=== PATIENT | male | born 1955 | race Two or more races ===

== ENCOUNTER 2017-09-26 19:10 | Inpatient (IN) | payer OTHER ==
[~2017-09-26] VITALS: Ht 170.2 cm; Wt 103.1 kg
[2017-09-26] MEDS ORDERED: ASPIRIN 325 MG TABLET PO STA (19:25)
[2017-09-26] MEDS ORDERED: ASPIRIN 81 MG TABLET CHEW ONE (19:31)
[2017-09-26] MEDS ORDERED: ONDANSETRON ODT 4 MG ONE (19:33)
[2017-09-26] MEDS ORDERED: MORPHINE SULFATE 4 MG/ML, 1ML ONE (19:34)
[2017-09-26 19:38] LABS: MEAN CORPUSCULAR HEMOGLOBIN 28.4 pg (27.5-34.5); MEAN CORPUSCULAR HGB CONC 33.8 g/dL (33.2-36.2); MEAN CORPUSCULAR VOLUME 84.1 fL (81-97); MEAN PLATELET VOLUME 8.6 fL (7.4-10.4); PLATELET COUNT 283 x10^3/uL (130-400); RED BLOOD COUNT 6.45 x10^6/uL (4.38-5.82); RED CELL DISTRIBUTION WIDTH 14.7 % (9.4-14.8)
[2017-09-26] MEDS ORDERED: NITROGLYCERIN 5 MG/ML, 10ML ONE (19:48)
[2017-09-26] MEDS ORDERED: VERAPAMIL 2.5 MG/ML, 2ML ONE (19:48)
[2017-09-26] MEDS ORDERED: TICAGRELOR 90 MG TABLET ONE (19:48)
[2017-09-26] MEDS ORDERED: FENTANYL PF 100 MCG/2ML ONE (19:48)
[2017-09-26] MEDS ORDERED: BIVALIRUDIN 250 MG ONE ×2 (19:48→20:56)
[2017-09-26] MEDS ORDERED: MIDAZOLAM 1 MG/ML, 5ML ONE (19:48)
[2017-09-26] MEDS ORDERED: HEPARIN 1,000 UNITS/ML, 10ML ONE (19:49)
[2017-09-26] MEDS ORDERED: LIDOCAINE/PF 1%, 30ML ONE (19:49)
[2017-09-26 19:55] LABS: BASOPHILS # (AUTO) 0.05 x10^3/uL (0-0.1); BASOPHILS % (AUTO) 0 % (0-1); EOSINOPHILS % (AUTO) 0 % (1-7); LYMPHOCYTES # (AUTO) 0.67 x10^3/uL (1-3.4); LYMPHOCYTES % (AUTO) 4 % (22-44); MD SCAN; MONOCYTES # (AUTO) 0.72 x10^3/uL (0.2-0.8); MONOCYTES % (AUTO) 4 % (2-9); NEUTROPHILS # (AUTO) 16.76 x10^3/uL (1.8-6.8); NEUTROPHILS % (AUTO) 92 % (42-75)
[2017-09-26 20:00] LABS: PROTHROMBIN TIME 10.4 Seconds (9.6-11.5)
[2017-09-26] MEDS ORDERED: ONDANSETRON ODT 4 MG PO ONE ×2 (20:00→22:00)
[2017-09-26] MEDS ORDERED: MORPHINE SULFATE 4 MG/ML, 1ML IVPush PRN (20:00)
[2017-09-26] MEDS ORDERED: NITROGLYCERIN SINGLE TAB 0.4 MG SL PRN (20:00)
[2017-09-26] MEDS ORDERED: SODIUM CHLORIDE FLUSH 10ML SYR IVF PRN (20:30)
[2017-09-26 20:47] LABS: HEMOGLOBIN A1C 6.1 % (4.2-6.3)
[2017-09-26] MEDS ORDERED: EPTIFIBATIDE 100 ML IV ONE (21:25)
[2017-09-26] MEDS ORDERED: EPTIFIBATIDE 20 MG/10 ML ONE ×2 (21:25→21:26)
[2017-09-26 22:20] VITALS: BP 118/72
[2017-09-26 23:07] LABS: TROPONIN I > 200.000 ng/mL (0.000-0.045)
[2017-09-26] MEDS: PROMETHAZINE 25 MG/ML, 1ML IM PRN (23:28)
[2017-09-26] MEDS ORDERED: FUROSEMIDE 20 MG/2 ML IVPush ONE (23:30)
[2017-09-26] MEDS ORDERED: DOCUSATE 100 MG CAPSULE PO PRN (23:30)
[2017-09-26] MEDS ORDERED: OXYcodone IR 5MG TABLET PO PRN (23:30)
[2017-09-26] MEDS ORDERED: ACETAMINOPHEN 325 MG TABLET PO PRN ×2 (23:30→23:45)
[2017-09-26] MEDS ORDERED: BISACODYL 10 MG SUPP PR PRN ×2 (23:30→23:45)
[2017-09-26] MEDS ORDERED: POLYETHYLENE GLYCOL 17 GM PACKET PO PRN (23:30)
[2017-09-26] MEDS ORDERED: morphine SULFATE 10 MG/ML, 1ML IVPush PRN (23:30)
[2017-09-26] MEDS ORDERED: ONDANSETRON 2MG/ML, 2ML IVPush PRN (23:30)
[2017-09-26] MEDS ORDERED: hydrALAzine 20 MG/ML, 1ML IVPush PRN (23:30)
[2017-09-26 23:45] LABS: HEMOGLOBIN A1C 6.2 % (4.2-6.3)
[2017-09-26] MEDS ORDERED: BISACODYL 5 MG EC TABLET PO PRN (23:45)
[2017-09-26] MEDS ORDERED: ONDANSETRON 2MG/ML, 2ML IV PRN (23:45)
[2017-09-26] MEDS ORDERED: ZOLPIDEM 5MG TABLET PO PRN (23:45)
[2017-09-26 23:48] LABS: FREE T4 (FREE THYROXINE) 1.16 ng/dL (0.76-1.46); THYROID STIMULATING HORMONE 1.67 mIU/L (0.358-3.740)
[2017-09-27] MEDS: SODIUM CHLORIDE 0.9% 500 ML IV SCH ×2 (00:18→05:27)
[2017-09-27 02:58] LABS: MICROSCOPIC AUTO
[2017-09-27 03:08] LABS: CULTURE INDICATED? NO
[2017-09-27] MEDS: ONDANSETRON ODT 4 MG PO PRN ×2 (03:50→08:21)
[2017-09-27] MEDS: PROMETHAZINE 25 MG/ML, 1ML IM PRN ×2 (03:50→07:34)
[2017-09-27 04:00] VITALS: BP 154/96
[2017-09-27] MEDS ORDERED: EPTIFIBATIDE 100 ML IV SCH (04:00)
[2017-09-27 04:40] LABS: MEAN CORPUSCULAR HEMOGLOBIN 28.2 pg (27.5-34.5); MEAN CORPUSCULAR HGB CONC 33.4 g/dL (33.2-36.2); MEAN CORPUSCULAR VOLUME 84.3 fL (81-97); MEAN PLATELET VOLUME 8.8 fL (7.4-10.4); PLATELET COUNT 276 x10^3/uL (130-400); RED BLOOD COUNT 6.12 x10^6/uL (4.38-5.82); RED CELL DISTRIBUTION WIDTH 14.8 % (9.4-14.8)
[2017-09-27 04:54] LABS: ALBUMIN 3.3 g/dL (3.4-5.0); ANION GAP 11 mmol/L (5-15); BASOPHILS # (AUTO) 0.03 x10^3/uL (0-0.1); BASOPHILS % (AUTO) 0 % (0-1); CALCIUM 8.2 mg/dL (8.5-10.1); CHLORIDE 97 mmol/L (98-107); EOSINOPHILS % (AUTO) 0 % (1-7); LYMPHOCYTES # (AUTO) 0.55 x10^3/uL (1-3.4); LYMPHOCYTES % (AUTO) 3 % (22-44); MD SCAN; MONOCYTES # (AUTO) 1.56 x10^3/uL (0.2-0.8); MONOCYTES % (AUTO) 8 % (2-9); NEUTROPHILS # (AUTO) 18.59 x10^3/uL (1.8-6.8); NEUTROPHILS % (AUTO) 90 % (42-75)
[2017-09-27 05:14] LABS: ALANINE AMINOTRANSFERASE 222 U/L (12-78); ALKALINE PHOSPHATASE 55 U/L (45-117); BILIRUBIN,TOTAL 1.1 mg/dL (0.2-1.0); CHOL/HDL RATIO 6.8; CHOLESTEROL, TOTAL 297 mg/dL (140-239); CREATININE 1.11 mg/dL (0.7-1.3); HDL CHOL % 15 % (26-37); HDL CHOLESTEROL (DIRECT) 44 mg/dL (40-60); LDL CHOLESTEROL,CALCULATED 226 mg/dL (54-169); LDL/HDL RATIO 5.1 (0.5-3.0); TOTAL PROTEIN 7.7 g/dL (6.4-8.2); TRIGLYCERIDES 135 mg/dL (50-200); VLDL CHOLESTEROL 27 mg/dL (0-25)
[2017-09-27 05:15] LABS: TROPONIN I > 200.000 ng/mL (0.000-0.045)
[2017-09-27] MEDS: ASPIRIN 81 MG TABLET EC PO SCH ×2 (05:28→05:47)
[2017-09-27] MEDS ORDERED: METOPROLOL TARTRATE 25 MG TABLET PO SCH (06:00)
[2017-09-27] MEDS ORDERED: PANTOPRAZOLE 80 MG in SODIUM CHLORIDE 0.9% 50 ML IV ONE (06:00)
[2017-09-27] MEDS ORDERED: PANTOPRAZOLE 80 MG in SODIUM CHLORIDE 0.9% 100 ML IV SCH (06:00)
[2017-09-27] MEDS ORDERED: ASPIRIN 81 MG TABLET EC PO SCH (06:00)
[2017-09-27] MEDS ORDERED: TICAGRELOR 90 MG TABLET PO SCH (06:00)
[2017-09-27] MEDS ORDERED: CARVEDILOL 3.125 MG TABLET PO SCH (06:00)
[2017-09-27] MEDS: TICAGRELOR 90 MG TABLET PO SCH ×2 (08:07→21:48)
[2017-09-27] MEDS: PANTOPRAZOLE 40 MG IV IVPush SCH ×2 (08:07→19:45)
[2017-09-27] MEDS ORDERED: LISINOPRIL 5 MG TABLET PO SCH ×2 (09:00→21:00)
[2017-09-27] MEDS ORDERED: LOSARTAN 25MG TABLET PO SCH (09:00)
[2017-09-27] MEDS ORDERED: GRANISETRON IV ONE (09:00)
[2017-09-27] MEDS ORDERED: SODIUM CHLORIDE 0.9% IV ONE (09:00)
[2017-09-27] MEDS: ENOXAPARIN 40 MG/0.4 ML SQ SCH (09:10)
[2017-09-27] MEDS: PROCHLORPERAZINE 5 MG/ML, 2ML IM PRN ×2 (12:37→17:43)
[2017-09-27] MEDS: METOPROLOL TARTRATE 25 MG TABLET PO SCH (17:43)
[2017-09-27] MEDS ORDERED: ATORVASTATIN 20 MG TABLET PO SCH (21:00)
[2017-09-27] MEDS: PROCHLORPERAZINE 5 MG/ML, 2ML IVPush PRN (21:47)
[2017-09-28] MEDS: PROCHLORPERAZINE 5 MG/ML, 2ML IVPush PRN ×3 (02:22→12:26)
[2017-09-28 04:00] VITALS: BP 114/78
[2017-09-28 04:51] LABS: ALANINE AMINOTRANSFERASE 133 U/L (12-78); ANION GAP 8 mmol/L (5-15); CALCIUM 8.2 mg/dL (8.5-10.1); CHLORIDE 101 mmol/L (98-107); CREATININE 1.13 mg/dL (0.7-1.3)
[2017-09-28 04:53] LABS: ALKALINE PHOSPHATASE 42 U/L (45-117); BILIRUBIN,TOTAL 1.8 mg/dL (0.2-1.0); TOTAL PROTEIN 7.1 g/dL (6.4-8.2)
[2017-09-28 05:25] LABS: MEAN CORPUSCULAR HEMOGLOBIN 28.4 pg (27.5-34.5); MEAN CORPUSCULAR HGB CONC 33.8 g/dL (33.2-36.2); PLATELET COUNT 228 x10^3/uL (130-400); RED BLOOD COUNT 5.13 x10^6/uL (4.38-5.82); RED CELL DISTRIBUTION WIDTH 14.9 % (9.4-14.8)
[2017-09-28] MEDS: ASPIRIN 81 MG TABLET EC PO SCH (05:30)
[2017-09-28] MEDS: METOPROLOL TARTRATE 25 MG TABLET PO SCH ×2 (05:30→18:00)
[2017-09-28 05:58] LABS: BASOPHILS # (AUTO) 0.01 x10^3/uL (0-0.1); BASOPHILS % (AUTO) 0 % (0-1); EOSINOPHILS # (AUTO) 0.01 x10^3/uL (0-0.4); EOSINOPHILS % (AUTO) 0 % (1-7); LYMPHOCYTES # (AUTO) 0.52 x10^3/uL (1-3.4); LYMPHOCYTES % (AUTO) 2 % (22-44); MD SCAN; MONOCYTES # (AUTO) 2.05 x10^3/uL (0.2-0.8); MONOCYTES % (AUTO) 9 % (2-9); NEUTROPHILS % (AUTO) 88 % (42-75)
[2017-09-28] MEDS: PANTOPRAZOLE 40 MG IV IVPush SCH ×2 (09:17→21:20)
[2017-09-28] MEDS: TICAGRELOR 90 MG TABLET PO SCH ×2 (09:18→21:20)
[2017-09-28] MEDS: ENOXAPARIN 40 MG/0.4 ML SQ SCH (09:18)
[2017-09-28 10:17] LABS: RAPID INFLUENZA A Negative (Negative); RAPID INFLUENZA B Negative (Negative)
[2017-09-28] MEDS: CEFTRIAXONE PMX 1GM/50ML 50 ML IV SCH (10:50)
[2017-09-28] MEDS: DOXYCYCLINE 100 MG in DEXTROSE 5% 250 ML IV SCH ×2 (11:38→21:58)
[2017-09-28] MEDS ORDERED: LISINOPRIL 5 MG TABLET PO SCH (21:00)
[2017-09-28] MEDS: ATORVASTATIN 40 MG TABLET PO SCH (21:21)
[2017-09-29 04:37] LABS: MEAN CORPUSCULAR HEMOGLOBIN 28.2 pg (27.5-34.5); MEAN CORPUSCULAR HGB CONC 33.5 g/dL (33.2-36.2); MEAN CORPUSCULAR VOLUME 84.1 fL (81-97); MEAN PLATELET VOLUME 8.6 fL (7.4-10.4); PLATELET COUNT 196 x10^3/uL (130-400); RED BLOOD COUNT 4.56 x10^6/uL (4.38-5.82); RED CELL DISTRIBUTION WIDTH 14.8 % (9.4-14.8)
[2017-09-29 04:49] LABS: ALANINE AMINOTRANSFERASE 84 U/L (12-78); ALBUMIN 2.7 g/dL (3.4-5.0); ANION GAP 8 mmol/L (5-15); CALCIUM 8.2 mg/dL (8.5-10.1); CHLORIDE 93 mmol/L (98-107); CREATININE 1.07 mg/dL (0.7-1.3)
[2017-09-29 04:52] LABS: ALKALINE PHOSPHATASE 44 U/L (45-117); BILIRUBIN,TOTAL 2.4 mg/dL (0.2-1.0); TOTAL PROTEIN 6.8 g/dL (6.4-8.2)
[2017-09-29 05:00] VITALS: BP 99/76
[2017-09-29 05:37] LABS: BASOPHILS # (AUTO) 0.04 x10^3/uL (0-0.1); BASOPHILS % (AUTO) 0 % (0-1); EOSINOPHILS # (AUTO) 0.01 x10^3/uL (0-0.4); EOSINOPHILS % (AUTO) 0 % (1-7); LYMPHOCYTES # (AUTO) 0.56 x10^3/uL (1-3.4); LYMPHOCYTES % (AUTO) 3 % (22-44); MD SCAN; MONOCYTES # (AUTO) 1.51 x10^3/uL (0.2-0.8); MONOCYTES % (AUTO) 7 % (2-9); NEUTROPHILS # (AUTO) 19.02 x10^3/uL (1.8-6.8); NEUTROPHILS % (AUTO) 90 % (42-75)
[2017-09-29] MEDS: ASPIRIN 81 MG TABLET EC PO SCH (06:18)
[2017-09-29] MEDS: METOPROLOL TARTRATE 25 MG TABLET PO SCH (06:18)
[2017-09-29] MEDS: PANTOPRAZOLE 40 MG IV IVPush SCH ×2 (07:41→20:03)
[2017-09-29] MEDS: CEFTRIAXONE PMX 1GM/50ML 50 ML IV SCH (09:00)
[2017-09-29] MEDS: TICAGRELOR 90 MG TABLET PO SCH ×2 (09:01→20:01)
[2017-09-29] MEDS: ENOXAPARIN 40 MG/0.4 ML SQ SCH (09:01)
[2017-09-29] MEDS: LISINOPRIL 5 MG TABLET PO SCH (09:08)
[2017-09-29] MEDS: DOXYCYCLINE 100 MG in DEXTROSE 5% 250 ML IV SCH ×2 (09:09→21:30)
[2017-09-29] MEDS ORDERED: chlorPROMAZINE 25 MG/ML, 2ML IM ONE (09:30)
[2017-09-29] MEDS ORDERED: POTASSIUM CHLORIDE 20 MEQ TAB.ER.PRT PO ONE (11:00)
[2017-09-29] MEDS: FUROSEMIDE 20 MG/2 ML IV SCH ×2 (13:03→17:56)
[2017-09-29 13:18] VITALS: BP 116/72
[2017-09-29] MEDS: CARVEDILOL 6.25 MG TABLET PO SCH (17:56)
[2017-09-29] MEDS ORDERED: CARVEDILOL 3.125 MG TABLET PO SCH (18:00)
[2017-09-29 19:24] VITALS: BP 81/46
[2017-09-29 19:31] VITALS: BP 97/61
[2017-09-29] MEDS: ATORVASTATIN 40 MG TABLET PO SCH (20:01)
[2017-09-29 22:06] VITALS: BP 98/64
[2017-09-30] VITALS (10 sets, daily range): BP systolic 85–101; BP diastolic 57–68
[2017-09-30 05:24] LABS: MEAN CORPUSCULAR HGB CONC 34.6 g/dL (33.2-36.2); MEAN CORPUSCULAR VOLUME 83.8 fL (81-97); PLATELET COUNT 205 x10^3/uL (130-400); RED BLOOD COUNT 4.03 x10^6/uL (4.38-5.82); RED CELL DISTRIBUTION WIDTH 14.7 % (9.4-14.8)
[2017-09-30 05:29] LABS: ALBUMIN 2.3 g/dL (3.4-5.0); ANION GAP 11 mmol/L (5-15); CALCIUM 7.9 mg/dL (8.5-10.1); CHLORIDE 96 mmol/L (98-107)
[2017-09-30 05:32] LABS: ALANINE AMINOTRANSFERASE 53 U/L (12-78); ALKALINE PHOSPHATASE 51 U/L (45-117); BILIRUBIN,TOTAL 1.9 mg/dL (0.2-1.0); CREATININE 1.11 mg/dL (0.7-1.3); TOTAL PROTEIN 6.4 g/dL (6.4-8.2)
[2017-09-30 05:51] LABS: BASOPHILS # (AUTO) 0.03 x10^3/uL (0-0.1); BASOPHILS % (AUTO) 0 % (0-1); EOSINOPHILS # (AUTO) 0.06 x10^3/uL (0-0.4); EOSINOPHILS % (AUTO) 0 % (1-7); LYMPHOCYTES # (AUTO) 0.52 x10^3/uL (1-3.4); LYMPHOCYTES % (AUTO) 3 % (22-44); MD SCAN; MONOCYTES # (AUTO) 1.35 x10^3/uL (0.2-0.8); MONOCYTES % (AUTO) 9 % (2-9); NEUTROPHILS # (AUTO) 13.24 x10^3/uL (1.8-6.8); NEUTROPHILS % (AUTO) 87 % (42-75)
[2017-09-30] MEDS: ASPIRIN 81 MG TABLET EC PO SCH (06:16)
[2017-09-30] MEDS: LISINOPRIL 5 MG TABLET PO SCH (08:22)
[2017-09-30] MEDS: ENOXAPARIN 40 MG/0.4 ML SQ SCH (08:22)
[2017-09-30] MEDS: PANTOPRAZOLE 40 MG IV IVPush SCH (08:22)
[2017-09-30] MEDS: CEFTRIAXONE PMX 1GM/50ML 50 ML IV SCH (08:22)
[2017-09-30] MEDS: TICAGRELOR 90 MG TABLET PO SCH ×2 (08:22→19:49)
[2017-09-30] MEDS: CARVEDILOL 6.25 MG TABLET PO SCH ×2 (08:22→18:35)
[2017-09-30] MEDS: DOXYCYCLINE 100 MG in DEXTROSE 5% 250 ML IV SCH ×2 (10:07→21:57)
[2017-09-30] MEDS: FUROSEMIDE 20 MG TABLET PO SCH (11:11)
[2017-09-30] MEDS: PANTOPROZOLE 40MG TABLET PO SCH (18:40)
[2017-09-30] MEDS: ATORVASTATIN 40 MG TABLET PO SCH (19:49)
[2017-10-01 01:09] VITALS: BP 113/71
[2017-10-01 05:39] VITALS: BP 98/67
[2017-10-01] MEDS: ASPIRIN 81 MG TABLET EC PO SCH (05:40)
[2017-10-01] MEDS: CARVEDILOL 6.25 MG TABLET PO SCH (05:40)
[2017-10-01 07:57] VITALS: BP 94/68
[2017-10-01] MEDS: LISINOPRIL 5 MG TABLET PO SCH (08:41)
[2017-10-01] MEDS: FUROSEMIDE 20 MG TABLET PO SCH ×2 (08:41→10:29)
[2017-10-01] MEDS: PANTOPROZOLE 40MG TABLET PO SCH (08:42)
[2017-10-01] MEDS: ENOXAPARIN 40 MG/0.4 ML SQ SCH (08:42)
[2017-10-01] MEDS: TICAGRELOR 90 MG TABLET PO SCH (08:42)
[2017-10-01 09:53] VITALS: BP_SYST 89; BP_SYST 92; BP_DIAS 60; BP_DIAS 65
[2017-10-01] MEDS ORDERED: ATOR40TA78 PO (13:43)
[2017-10-01] MEDS ORDERED: CARV3.1212 PO (13:43)
[2017-10-01] MEDS ORDERED: TICA90TA PO (13:43)
[2017-10-01] MEDS ORDERED: LISI5TAB7 PO (13:43)
[2017-10-01] MEDS ORDERED: ASPI-621 PO (13:43)
[2017-10-01 14:29] VITALS: BP 93/67
[2017-10-01] MEDS ORDERED: CARVEDILOL 3.125 MG TABLET PO SCH (18:00)
== END 2017-10-01 15:54 | disposition home or self-care (01) | DRG 246 ==
LOC: ED 20:21 → EDIP 20:30 → CCU 21:43 → 5SO 09-29 10:50 → DCLOUNGE 10-01 15:37
PROVIDERS: ADMIT Internal Medicine; ATTEND Internal Medicine
PROC: 027035Z Dilation of Coronary Artery, One Artery with Two Drug-eluting Intraluminal Devices, Percutaneous Approach (ICD-10-PCS; principal; 2017-09-26)
PROC: 02703ZZ Dilation of Coronary Artery, One Artery, Percutaneous Approach (ICD-10-PCS; 2017-09-26)
PROC: 4A023N7 Measurement of Cardiac Sampling and Pressure, Left Heart, Percutaneous Approach (ICD-10-PCS; 2017-09-26)
PROC: B2111ZZ Fluoroscopy of Multiple Coronary Arteries using Low Osmolar Contrast (ICD-10-PCS; 2017-09-26)
DX: I21.09 ST elevation (STEMI) myocardial infarction involving other coronary artery of anterior wall (principal); J18.9 Pneumonia, unspecified organism; K72.00 Acute and subacute hepatic failure without coma; I95.9 Hypotension, unspecified; E87.1 Hypo-osmolality and hyponatremia; I31.3 Pericardial effusion (noninflammatory); I08.3 Combined rheumatic disorders of mitral, aortic and tricuspid valves; B17.9 Acute viral hepatitis, unspecified; E78.5 Hyperlipidemia, unspecified; I10 Essential (primary) hypertension; I25.10 Atherosclerotic heart disease of native coronary artery without angina pectoris; G47.9 Sleep disorder, unspecified; I25.5 Ischemic cardiomyopathy; S30.1XXA Contusion of abdominal wall, initial encounter; Z87.891 Personal history of nicotine dependence; Z79.82 Long term (current) use of aspirin; Z79.899 Other long term (current) drug therapy; Y92.89 Other specified places as the place of occurrence of the external cause
CPT/HCPCS: 36415; 71045; 71046; 74018; 80047; 80053; 80061; 81001; 83036; 83735; 83880; 84439; 84443; 84484; 85025; 85610; 85730; 86677; 87040; 87081; 87400; 93005; 93306; 93458; 96374; 99156; 99157; C1760; C1769; C1894; J0583; J0696; J1644; J1650; J2250; J2550; J3010; J3490; J7060; Q0162; C1725; C1757; C1874; C1887; C9113; J0780; J1327; J1626; J1940; J3230; J7040; Q9967

== ENCOUNTER 2017-10-08 13:31 | Inpatient (IN) | payer OTHER ==
[~2017-10-08] VITALS: Ht 170.2 cm; Wt 98.1 kg
[~2017-10-08 13:31] MED LIST: ASPI-621 PO; ATOR40TA78 PO; CARV3.1212 PO; LISI5TAB7 PO; TICA90TA PO
[2017-10-08] MEDS ORDERED: ASPIRIN 81 MG TABLET CHEW PO ONE (14:00)
[2017-10-08] MEDS ORDERED: SODIUM CHLORIDE FLUSH 10ML SYR IVF ONE (14:00)
[2017-10-08 14:09] LABS: INTERNATIONAL NORMALIZED RATIO 1.05 (0.93-1.1); PROTHROMBIN TIME 10.9 Seconds (9.6-11.5)
[2017-10-08 14:10] LABS: MEAN CORPUSCULAR HEMOGLOBIN 28.9 pg (27.5-34.5); MEAN CORPUSCULAR HGB CONC 33.7 g/dL (33.2-36.2); MEAN CORPUSCULAR VOLUME 85.9 fL (81-97); MEAN PLATELET VOLUME 7.5 fL (7.4-10.4); PLATELET COUNT 539 x10^3/uL (130-400); RED BLOOD COUNT 4.42 x10^6/uL (4.38-5.82); RED CELL DISTRIBUTION WIDTH 15.6 % (9.4-14.8)
[2017-10-08 14:11] LABS: MD YES
[2017-10-08 14:12] LABS: ALANINE AMINOTRANSFERASE 150 U/L (12-78); ALBUMIN 2.8 g/dL (3.4-5.0); ANION GAP 8 mmol/L (5-15); CALCIUM 8.3 mg/dL (8.5-10.1); CHLORIDE 105 mmol/L (98-107); CREATININE 1.06 mg/dL (0.7-1.3)
[2017-10-08 14:16] LABS: ALKALINE PHOSPHATASE 99 U/L (45-117); BILIRUBIN,TOTAL 1.1 mg/dL (0.2-1.0); TOTAL PROTEIN 7.8 g/dL (6.4-8.2)
[2017-10-08 14:45] LABS: BAND#(MANUAL) 0.16 x10^3/uL; BANDS%(MANUAL) 1 % (0-7); EOS#(MANUAL) 0.33 x10^3/uL (0.0-0.4); EOS% (MANUAL) 2 % (1-7); LYMPH#(MANUAL) 0.98 x10^3/uL (1-3.4); LYMPHS% (MANUAL) 6 % (22-44); MONOS#(MANUAL) 0.98 x10^3/uL (0.3-2.7); MONOS% (MANUAL) 6 % (2-9); SEG#(MANUAL) 13.86 x10^3/uL (1.8-6.8); SEGS% (MANUAL) 85 % (42-75)
[2017-10-08 14:47] LABS: <PLATELET ESTIMATE> INCREASED; <PLT MORPHOLOGY> NORMAL PLT MORPH; POLYCHROMASIA 1+
[2017-10-08] MEDS ORDERED: SODIUM CHLORIDE FLUSH 10ML SYR IVF PRN (15:00)
[2017-10-08] MEDS ORDERED: ONDANSETRON 2MG/ML, 2ML IVPush PRN (15:30)
[2017-10-08] MEDS ORDERED: ACETAMINOPHEN 325 MG TABLET PO PRN (15:30)
[2017-10-08] MEDS ORDERED: FUROSEMIDE 20 MG/2 ML IV ONE (16:00)
[2017-10-08 16:28] VITALS: BP 109/71
[2017-10-08 16:36] VITALS: BP_SYST 111; BP_SYST 98; BP_DIAS 64; BP_DIAS 73; BP_DIAS 76
[2017-10-08] MEDS: CARVEDILOL 3.125 MG TABLET PO SCH (17:00)
[2017-10-08 17:41] LABS: HEMOGLOBIN A1C 6.1 % (4.2-6.3)
[2017-10-08 18:59] VITALS: BP 90/54
[2017-10-08 19:00] VITALS: BP 95/61
[2017-10-08 19:01] VITALS: BP 100/68
[2017-10-08] MEDS: HEPARIN 5,000 UNITS/ML, 1ML SQ SCH (20:19)
[2017-10-08] MEDS: ATORVASTATIN 40 MG TABLET PO SCH (20:19)
[2017-10-08] MEDS: TICAGRELOR 90 MG TABLET PO SCH (20:19)
[2017-10-09] VITALS (12 sets, daily range): BP systolic 101–122; BP diastolic 69–83
[2017-10-09 05:09] LABS: BASOPHILS # (AUTO) 0.04 x10^3/uL (0-0.1); BASOPHILS % (AUTO) 0 % (0-1); EOSINOPHILS # (AUTO) 0.23 x10^3/uL (0-0.4); EOSINOPHILS % (AUTO) 2 % (1-7); LYMPHOCYTES # (AUTO) 0.93 x10^3/uL (1-3.4); LYMPHOCYTES % (AUTO) 6 % (22-44); MD NO; MEAN CORPUSCULAR HEMOGLOBIN 28.5 pg (27.5-34.5); MEAN CORPUSCULAR VOLUME 86.5 fL (81-97); MEAN PLATELET VOLUME 7.3 fL (7.4-10.4); MONOCYTES % (AUTO) 8 % (2-9); NEUTROPHILS # (AUTO) 12.19 x10^3/uL (1.8-6.8); NEUTROPHILS % (AUTO) 84 % (42-75); PLATELET COUNT 450 x10^3/uL (130-400); RED BLOOD COUNT 3.85 x10^6/uL (4.38-5.82); RED CELL DISTRIBUTION WIDTH 15.6 % (9.4-14.8)
[2017-10-09] MEDS: HEPARIN 5,000 UNITS/ML, 1ML SQ SCH ×3 (05:11→20:04)
[2017-10-09 05:12] LABS: ANION GAP 6 mmol/L (5-15); CALCIUM 7.7 mg/dL (8.5-10.1); CHLORIDE 105 mmol/L (98-107); CREATININE 1.04 mg/dL (0.7-1.3)
[2017-10-09] MEDS: ASPIRIN 81 MG TABLET EC PO SCH (05:13)
[2017-10-09] MEDS: CARVEDILOL 3.125 MG TABLET PO SCH (05:13)
[2017-10-09] MEDS: TICAGRELOR 90 MG TABLET PO SCH ×2 (08:26→20:03)
[2017-10-09] MEDS: LISINOPRIL 5 MG TABLET PO SCH (08:44)
[2017-10-09] MEDS ORDERED: LISINOPRIL 5 MG TABLET PO SCH (09:00)
[2017-10-09] MEDS ORDERED: POTASSIUM CHLORIDE 20 MEQ TAB.ER.PRT PO ONE (09:00)
[2017-10-09] MEDS ORDERED: FUROSEMIDE 20 MG/2 ML IV ONE (09:00)
[2017-10-09] MEDS: METOPROLOL TARTRATE 25 MG TABLET PO SCH (17:51)
[2017-10-09] MEDS: ATORVASTATIN 40 MG TABLET PO SCH (20:03)
[2017-10-10] MEDS: HEPARIN 5,000 UNITS/ML, 1ML SQ SCH ×3 (05:00→19:32)
[2017-10-10] MEDS: ASPIRIN 81 MG TABLET EC PO SCH (05:19)
[2017-10-10] MEDS: METOPROLOL TARTRATE 25 MG TABLET PO SCH ×2 (05:20→17:21)
[2017-10-10 06:15] VITALS: BP 101/69
[2017-10-10 07:31] LABS: ANION GAP 8 mmol/L (5-15); CALCIUM 7.9 mg/dL (8.5-10.1); CHLORIDE 105 mmol/L (98-107); CREATININE 0.98 mg/dL (0.7-1.3)
[2017-10-10 07:42] LABS: BASOPHILS # (AUTO) 0.02 x10^3/uL (0-0.1); BASOPHILS % (AUTO) 0 % (0-1); EOSINOPHILS # (AUTO) 0.16 x10^3/uL (0-0.4); EOSINOPHILS % (AUTO) 1 % (1-7); LYMPHOCYTES # (AUTO) 0.72 x10^3/uL (1-3.4); LYMPHOCYTES % (AUTO) 5 % (22-44); MD NO; MEAN CORPUSCULAR HEMOGLOBIN 27.9 pg (27.5-34.5); MEAN CORPUSCULAR HGB CONC 32.6 g/dL (33.2-36.2); MEAN CORPUSCULAR VOLUME 85.4 fL (81-97); MEAN PLATELET VOLUME 7.5 fL (7.4-10.4); MONOCYTES # (AUTO) 0.81 x10^3/uL (0.2-0.8); MONOCYTES % (AUTO) 5 % (2-9); NEUTROPHILS % (AUTO) 89 % (42-75); PLATELET COUNT 470 x10^3/uL (130-400); RED BLOOD COUNT 4.36 x10^6/uL (4.38-5.82)
[2017-10-10] MEDS: LISINOPRIL 5 MG TABLET PO SCH (07:54)
[2017-10-10] MEDS: TICAGRELOR 90 MG TABLET PO SCH ×2 (07:54→19:32)
[2017-10-10] MEDS: FUROSEMIDE 40 MG TABLET PO SCH (08:46)
[2017-10-10 12:01] VITALS: BP 104/72
[2017-10-10] MEDS: ATORVASTATIN 40 MG TABLET PO SCH (19:32)
[2017-10-10 19:44] VITALS: BP 115/79
[2017-10-11 02:00] VITALS: BP 115/81
[2017-10-11] MEDS: HEPARIN 5,000 UNITS/ML, 1ML SQ SCH (05:29)
[2017-10-11] MEDS: ASPIRIN 81 MG TABLET EC PO SCH (05:30)
[2017-10-11] MEDS: METOPROLOL TARTRATE 25 MG TABLET PO SCH (05:31)
[2017-10-11 07:21] LABS: BASOPHILS # (AUTO) 0.06 x10^3/uL (0-0.1); BASOPHILS % (AUTO) 0 % (0-1); EOSINOPHILS # (AUTO) 0.12 x10^3/uL (0-0.4); EOSINOPHILS % (AUTO) 1 % (1-7); LYMPHOCYTES # (AUTO) 0.61 x10^3/uL (1-3.4); LYMPHOCYTES % (AUTO) 4 % (22-44); MD NO; MEAN CORPUSCULAR HEMOGLOBIN 28.3 pg (27.5-34.5); MEAN CORPUSCULAR VOLUME 85.7 fL (81-97); MEAN PLATELET VOLUME 7.3 fL (7.4-10.4); MONOCYTES # (AUTO) 0.47 x10^3/uL (0.2-0.8); MONOCYTES % (AUTO) 3 % (2-9); NEUTROPHILS # (AUTO) 12.68 x10^3/uL (1.8-6.8); NEUTROPHILS % (AUTO) 91 % (42-75); PLATELET COUNT 500 x10^3/uL (130-400); RED BLOOD COUNT 4.27 x10^6/uL (4.38-5.82); RED CELL DISTRIBUTION WIDTH 15.9 % (9.4-14.8)
[2017-10-11 07:30] LABS: CHLORIDE 105 mmol/L (98-107)
[2017-10-11 07:31] LABS: ANION GAP 8 mmol/L (5-15); CALCIUM 8.2 mg/dL (8.5-10.1); CREATININE 1.05 mg/dL (0.7-1.3)
[2017-10-11] MEDS: LISINOPRIL 5 MG TABLET PO SCH (08:27)
[2017-10-11] MEDS: TICAGRELOR 90 MG TABLET PO SCH (08:27)
[2017-10-11] MEDS: FUROSEMIDE 40 MG TABLET PO SCH (08:27)
[2017-10-11 09:36] VITALS: BP 103/71
[2017-10-11] MEDS ORDERED: LISI5TAB7 PO (11:49)
== END 2017-10-11 12:30 | disposition home or self-care (01) | DRG 281 ==
LOC: ED 14:41 → 5SO 14:42 → ED 14:48 → DCLOUNGE 10-11 12:25
PROVIDERS: ADMIT Internal Medicine Pulmonary Disease; ATTEND Internal Medicine Pulmonary Disease
DX: I11.0 Hypertensive heart disease with heart failure (principal); I21.09 ST elevation (STEMI) myocardial infarction involving other coronary artery of anterior wall; E44.0 Moderate protein-calorie malnutrition; I50.41 Acute combined systolic (congestive) and diastolic (congestive) heart failure; G90.9 Disorder of the autonomic nervous system, unspecified; F41.9 Anxiety disorder, unspecified; I25.10 Atherosclerotic heart disease of native coronary artery without angina pectoris; I25.5 Ischemic cardiomyopathy; Z79.82 Long term (current) use of aspirin; Z87.891 Personal history of nicotine dependence; Z68.33 Body mass index [BMI] 33.0-33.9, adult
CPT/HCPCS: 36415; 71045; 80048; 80053; 83036; 83735; 83880; 84100; 84443; 84484; 85025; 85610; 85730; 93005; 93306; 93880; 99285; J1644; J1940

== ENCOUNTER 2017-10-16 14:45 | Inpatient (IN) | payer OTHER ==
[~2017-10-16] VITALS: Ht 170.2 cm; Wt 94.0 kg
[2017-10-16] MEDS ORDERED: FUROSEMIDE 40 MG/4 ML IV ONE (15:30)
[2017-10-16] MEDS ORDERED: FUROSEMIDE 20 MG/2 ML ONE (15:59)
[2017-10-16 16:10] LABS: INTERNATIONAL NORMALIZED RATIO 1.18 (0.93-1.1); PROTHROMBIN TIME 12.1 Seconds (9.6-11.5)
[2017-10-16 16:13] LABS: BASOPHILS # (AUTO) 0.05 x10^3/uL (0-0.1); BASOPHILS % (AUTO) 1 % (0-1); EOSINOPHILS # (AUTO) 0.07 x10^3/uL (0-0.4); EOSINOPHILS % (AUTO) 1 % (1-7); LYMPHOCYTES # (AUTO) 0.63 x10^3/uL (1-3.4); LYMPHOCYTES % (AUTO) 6 % (22-44); MEAN CORPUSCULAR HEMOGLOBIN 28.2 pg (27.5-34.5); MEAN CORPUSCULAR HGB CONC 32.6 g/dL (33.2-36.2); MEAN CORPUSCULAR VOLUME 86.5 fL (81-97); MEAN PLATELET VOLUME 7.3 fL (7.4-10.4); MONOCYTES # (AUTO) 0.63 x10^3/uL (0.2-0.8); MONOCYTES % (AUTO) 6 % (2-9); NEUTROPHILS # (AUTO) 8.95 x10^3/uL (1.8-6.8); NEUTROPHILS % (AUTO) 87 % (42-75); PLATELET COUNT 473 x10^3/uL (130-400); RED BLOOD COUNT 4.46 x10^6/uL (4.38-5.82); RED CELL DISTRIBUTION WIDTH 16.3 % (9.4-14.8)
[2017-10-16 16:14] LABS: ALBUMIN 3.2 g/dL (3.4-5.0); ANION GAP 10 mmol/L (5-15); CALCIUM 8.2 mg/dL (8.5-10.1); CHLORIDE 108 mmol/L (98-107); MD NO
[2017-10-16 16:20] LABS: ALANINE AMINOTRANSFERASE 58 U/L (12-78); ALKALINE PHOSPHATASE 86 U/L (45-117); BILIRUBIN,TOTAL 0.8 mg/dL (0.2-1.0); CREATININE 1.23 mg/dL (0.7-1.3); TOTAL PROTEIN 7.7 g/dL (6.4-8.2)
[2017-10-16 16:22] LABS: TROPONIN I 0.425 ng/mL (0.000-0.045)
[2017-10-16] MEDS ORDERED: ONDANSETRON 2MG/ML, 2ML IVPush PRN (17:30)
[2017-10-16] MEDS ORDERED: MORPHINE SULFATE 4 MG/ML, 1ML IVPush PRN (17:30)
[2017-10-16] MEDS ORDERED: ACETAMINOPHEN 325 MG TABLET PO PRN (17:30)
[2017-10-16] MEDS ORDERED: POLYETHYLENE GLYCOL 17 GM PACKET PO PRN (17:30)
[2017-10-16] MEDS ORDERED: hydrALAzine 20 MG/ML, 1ML IVPush PRN (17:30)
[2017-10-16] MEDS ORDERED: TEMAZEPAM 15 MG CAPSULE PO PRN (17:30)
[2017-10-16] MEDS ORDERED: HYDROcodone/APAP 5/325 TABLET PO PRN (17:30)
[2017-10-16 17:49] VITALS: BP 136/69
[2017-10-16] MEDS ORDERED: POTASSIUM CHLORIDE 20 MEQ TAB.ER.PRT PO ONE (18:00)
[2017-10-16 18:13] LABS: FREE T4 (FREE THYROXINE) 1.83 ng/dL (0.76-1.46); THYROID STIMULATING HORMONE 1.12 mIU/L (0.358-3.740)
[2017-10-16 19:01] VITALS: BP 120/84
[2017-10-16] MEDS: CARVEDILOL 3.125 MG TABLET PO SCH (21:31)
[2017-10-16] MEDS: TICAGRELOR 90 MG TABLET PO SCH (21:31)
[2017-10-16] MEDS: ENOXAPARIN 40 MG/0.4 ML SQ SCH (21:31)
[2017-10-16] MEDS: ATORVASTATIN 40 MG TABLET PO SCH (21:31)
[2017-10-17] VITALS (9 sets, daily range): BP systolic 99–119; BP diastolic 69–88
[2017-10-17 05:46] LABS: BASOPHILS # (AUTO) 0.07 x10^3/uL (0-0.1); BASOPHILS % (AUTO) 1 % (0-1); EOSINOPHILS # (AUTO) 0.12 x10^3/uL (0-0.4); EOSINOPHILS % (AUTO) 1 % (1-7); LYMPHOCYTES # (AUTO) 0.77 x10^3/uL (1-3.4); LYMPHOCYTES % (AUTO) 7 % (22-44); MD NO; MEAN CORPUSCULAR HEMOGLOBIN 28.2 pg (27.5-34.5); MEAN CORPUSCULAR HGB CONC 32.7 g/dL (33.2-36.2); MEAN CORPUSCULAR VOLUME 86.1 fL (81-97); MEAN PLATELET VOLUME 7.5 fL (7.4-10.4); MONOCYTES # (AUTO) 0.71 x10^3/uL (0.2-0.8); MONOCYTES % (AUTO) 7 % (2-9); NEUTROPHILS % (AUTO) 84 % (42-75); PLATELET COUNT 443 x10^3/uL (130-400); RED CELL DISTRIBUTION WIDTH 16.3 % (9.4-14.8)
[2017-10-17] MEDS: FUROSEMIDE 20 MG/2 ML IV SCH ×3 (05:47→07:47)
[2017-10-17] MEDS: ASPIRIN 81 MG TABLET EC PO SCH (05:47)
[2017-10-17 05:49] LABS: CHLORIDE 107 mmol/L (98-107)
[2017-10-17 06:26] LABS: % IRON SATURATION 17 % (20-55); ALANINE AMINOTRANSFERASE 55 U/L (12-78); ALBUMIN 2.9 g/dL (3.4-5.0); ALKALINE PHOSPHATASE 80 U/L (45-117); ANION GAP 11 mmol/L (5-15); BILIRUBIN,TOTAL 0.8 mg/dL (0.2-1.0); CREATININE 1.32 mg/dL (0.7-1.3); IRON LEVEL 47 mcg/dL (65-175); TOTAL IRON BINDING CAPACITY 274 mcg/dL (250-450); TOTAL PROTEIN 7.6 g/dL (6.4-8.2)
[2017-10-17] MEDS: LISINOPRIL 5 MG TABLET PO SCH (08:11)
[2017-10-17] MEDS: POTASSIUM CHLORIDE 20 MEQ TAB.ER.PRT PO SCH (08:11)
[2017-10-17] MEDS: TICAGRELOR 90 MG TABLET PO SCH ×2 (08:11→21:58)
[2017-10-17] MEDS: CARVEDILOL 3.125 MG TABLET PO SCH ×2 (08:12→17:58)
[2017-10-17] MEDS: FERROUS SULFATE 325 MG TABLET PO SCH ×3 (08:15→17:57)
[2017-10-17] MEDS ORDERED: LISINOPRIL 5 MG TABLET PO SCH (09:00)
[2017-10-17] MEDS: ATORVASTATIN 40 MG TABLET PO SCH (21:58)
[2017-10-17] MEDS: ENOXAPARIN 40 MG/0.4 ML SQ SCH (21:58)
[2017-10-18] VITALS (8 sets, daily range): BP systolic 96–115; BP diastolic 63–80
[2017-10-18 05:36] LABS: BASOPHILS # (AUTO) 0.06 x10^3/uL (0-0.1); BASOPHILS % (AUTO) 1 % (0-1); EOSINOPHILS # (AUTO) 0.19 x10^3/uL (0-0.4); EOSINOPHILS % (AUTO) 2 % (1-7); LYMPHOCYTES # (AUTO) 0.59 x10^3/uL (1-3.4); LYMPHOCYTES % (AUTO) 6 % (22-44); MD NO; MEAN CORPUSCULAR HEMOGLOBIN 28.5 pg (27.5-34.5); MEAN CORPUSCULAR HGB CONC 33.4 g/dL (33.2-36.2); MEAN CORPUSCULAR VOLUME 85.5 fL (81-97); MEAN PLATELET VOLUME 7.4 fL (7.4-10.4); MONOCYTES # (AUTO) 0.61 x10^3/uL (0.2-0.8); MONOCYTES % (AUTO) 6 % (2-9); NEUTROPHILS # (AUTO) 7.99 x10^3/uL (1.8-6.8); NEUTROPHILS % (AUTO) 85 % (42-75); PLATELET COUNT 365 x10^3/uL (130-400); RED BLOOD COUNT 4.07 x10^6/uL (4.38-5.82); RED CELL DISTRIBUTION WIDTH 16.7 % (9.4-14.8)
[2017-10-18 05:49] LABS: CHLORIDE 107 mmol/L (98-107)
[2017-10-18] MEDS: CARVEDILOL 3.125 MG TABLET PO SCH ×2 (05:52→18:17)
[2017-10-18] MEDS: ASPIRIN 81 MG TABLET EC PO SCH (05:52)
[2017-10-18 06:25] LABS: ANION GAP 10 mmol/L (5-15); CALCIUM 7.7 mg/dL (8.5-10.1); CREATININE 1.14 mg/dL (0.7-1.3)
[2017-10-18 06:26] LABS: ALANINE AMINOTRANSFERASE 44 U/L (12-78); ALBUMIN 2.6 g/dL (3.4-5.0); ALKALINE PHOSPHATASE 69 U/L (45-117); TOTAL PROTEIN 6.6 g/dL (6.4-8.2)
[2017-10-18] MEDS: POTASSIUM CHLORIDE 20 MEQ TAB.ER.PRT PO SCH (10:04)
[2017-10-18] MEDS: FUROSEMIDE 40 MG TABLET PO SCH (10:04)
[2017-10-18] MEDS: CLOPIDOGREL 75 MG TABLET PO SCH (10:04)
[2017-10-18] MEDS: FERROUS SULFATE 325 MG TABLET PO SCH ×3 (10:04→18:17)
[2017-10-18] MEDS: LISINOPRIL 5 MG TABLET PO SCH (10:05)
[2017-10-18] MEDS: ENOXAPARIN 40 MG/0.4 ML SQ SCH (18:17)
[2017-10-18] MEDS: ATORVASTATIN 40 MG TABLET PO SCH (20:22)
[2017-10-19 01:53] VITALS: BP 107/74
[2017-10-19] MEDS: ASPIRIN 81 MG TABLET EC PO SCH (05:57)
[2017-10-19] MEDS: CARVEDILOL 3.125 MG TABLET PO SCH ×2 (05:57→17:48)
[2017-10-19 06:45] VITALS: BP 94/68
[2017-10-19] MEDS: POTASSIUM CHLORIDE 20 MEQ TAB.ER.PRT PO SCH (09:22)
[2017-10-19] MEDS: CLOPIDOGREL 75 MG TABLET PO SCH (09:22)
[2017-10-19] MEDS: FUROSEMIDE 40 MG TABLET PO SCH (09:22)
[2017-10-19] MEDS: FERROUS SULFATE 325 MG TABLET PO SCH ×3 (09:22→17:47)
[2017-10-19] MEDS: LISINOPRIL 5 MG TABLET PO SCH (09:23)
[2017-10-19 10:22] LABS: BASOPHILS # (AUTO) 0.12 x10^3/uL (0-0.1); BASOPHILS % (AUTO) 1 % (0-1); EOSINOPHILS # (AUTO) 0.12 x10^3/uL (0-0.4); EOSINOPHILS % (AUTO) 2 % (1-7); LYMPHOCYTES # (AUTO) 0.48 x10^3/uL (1-3.4); LYMPHOCYTES % (AUTO) 6 % (22-44); MD NO; MEAN CORPUSCULAR VOLUME 84.9 fL (81-97); MEAN PLATELET VOLUME 7.3 fL (7.4-10.4); MONOCYTES % (AUTO) 6 % (2-9); NEUTROPHILS # (AUTO) 6.93 x10^3/uL (1.8-6.8); NEUTROPHILS % (AUTO) 85 % (42-75); PLATELET COUNT 383 x10^3/uL (130-400); RED BLOOD COUNT 4.43 x10^6/uL (4.38-5.82); RED CELL DISTRIBUTION WIDTH 16.6 % (9.4-14.8)
[2017-10-19 10:35] LABS: ALANINE AMINOTRANSFERASE 41 U/L (12-78); ALBUMIN 2.7 g/dL (3.4-5.0); ANION GAP 7 mmol/L (5-15); CALCIUM 7.7 mg/dL (8.5-10.1); CHLORIDE 107 mmol/L (98-107); CREATININE 1.08 mg/dL (0.7-1.3)
[2017-10-19 10:37] LABS: ALKALINE PHOSPHATASE 72 U/L (45-117); BILIRUBIN,TOTAL 0.7 mg/dL (0.2-1.0); TOTAL PROTEIN 6.8 g/dL (6.4-8.2)
[2017-10-19] MEDS ORDERED: FUROSEMIDE 20 MG/2 ML IV ONE (11:30)
[2017-10-19 13:01] VITALS: BP 116/82
[2017-10-19] MEDS: ENOXAPARIN 40 MG/0.4 ML SQ SCH (17:49)
[2017-10-19 18:46] VITALS: BP 105/72
[2017-10-19] MEDS: ATORVASTATIN 40 MG TABLET PO SCH (20:56)
[2017-10-20] VITALS (8 sets, daily range): BP systolic 97–110; BP diastolic 67–77
[2017-10-20 05:36] LABS: ANION GAP 8 mmol/L (5-15); CALCIUM 8.1 mg/dL (8.5-10.1); CHLORIDE 107 mmol/L (98-107); CREATININE 1.17 mg/dL (0.7-1.3)
[2017-10-20] MEDS: ASPIRIN 81 MG TABLET EC PO SCH (06:34)
[2017-10-20] MEDS: CARVEDILOL 3.125 MG TABLET PO SCH ×2 (06:36→17:38)
[2017-10-20] MEDS: SPIRONOLACTONE 25 MG TABLET PO SCH ×2 (09:00→11:19)
[2017-10-20] MEDS: FERROUS SULFATE 325 MG TABLET PO SCH ×3 (09:18→17:38)
[2017-10-20] MEDS: LISINOPRIL 5 MG TABLET PO SCH (09:18)
[2017-10-20] MEDS: CLOPIDOGREL 75 MG TABLET PO SCH (09:18)
[2017-10-20] MEDS: POTASSIUM CHLORIDE 20 MEQ TAB.ER.PRT PO SCH (09:18)
[2017-10-20] MEDS: FUROSEMIDE 40 MG TABLET PO SCH (10:53)
[2017-10-20] MEDS ORDERED: CLOP75TA PO (15:54)
[2017-10-20] MEDS ORDERED: SPIR25TA PO (15:54)
[2017-10-20] MEDS ORDERED: FERR-51 PO (15:54)
[2017-10-20] MEDS ORDERED: FURO40TA6 PO (15:54)
[2017-10-20] MEDS ORDERED: POTA20TA6 PO (15:54)
[2017-10-20] MEDS: ENOXAPARIN 40 MG/0.4 ML SQ SCH (17:38)
[2017-10-20] MEDS: ATORVASTATIN 40 MG TABLET PO SCH (20:06)
[2017-10-21 03:01] VITALS: BP 93/61
[2017-10-21 06:09] VITALS: BP 104/71
[2017-10-21] MEDS: ASPIRIN 81 MG TABLET EC PO SCH (06:10)
[2017-10-21] MEDS: CARVEDILOL 3.125 MG TABLET PO SCH (06:10)
[2017-10-21 07:27] VITALS: BP 105/72
[2017-10-21] MEDS: FUROSEMIDE 40 MG TABLET PO SCH (09:37)
[2017-10-21] MEDS: POTASSIUM CHLORIDE 20 MEQ TAB.ER.PRT PO SCH (09:37)
[2017-10-21] MEDS: CLOPIDOGREL 75 MG TABLET PO SCH (09:38)
[2017-10-21] MEDS: LISINOPRIL 5 MG TABLET PO SCH (09:38)
[2017-10-21] MEDS: FERROUS SULFATE 325 MG TABLET PO SCH ×2 (09:39→12:18)
[2017-10-21 13:02] VITALS: BP 104/73
== END 2017-10-21 14:22 | disposition home or self-care (01) | DRG 291 ==
LOC: ED 15:58 → EDIP 16:22 → 5SO 17:30
PROVIDERS: ADMIT Internal Medicine; ATTEND Internal Medicine
DX: I11.0 Hypertensive heart disease with heart failure (principal); E43 Unspecified severe protein-calorie malnutrition; J96.00 Acute respiratory failure, unspecified whether with hypoxia or hypercapnia; E87.2 Acidosis; N17.9 Acute kidney failure, unspecified; I50.43 Acute on chronic combined systolic (congestive) and diastolic (congestive) heart failure; D50.9 Iron deficiency anemia, unspecified; E66.9 Obesity, unspecified; Z68.32 Body mass index [BMI] 32.0-32.9, adult; E78.5 Hyperlipidemia, unspecified; I08.1 Rheumatic disorders of both mitral and tricuspid valves; I25.10 Atherosclerotic heart disease of native coronary artery without angina pectoris; I25.2 Old myocardial infarction; Z79.899 Other long term (current) drug therapy; Z82.49 Family history of ischemic heart disease and other diseases of the circulatory system; Z87.891 Personal history of nicotine dependence; Z95.5 Presence of coronary angioplasty implant and graft
CPT/HCPCS: 36415; 71045; 78582; 80048; 80053; 83540; 83550; 83735; 83880; 84100; 84439; 84443; 84484; 85025; 85610; 93005; 96374; J1650; J1940; A9540; A9558; C9898

== ENCOUNTER 2017-10-25 12:11 | Inpatient (IN) | payer OTHER ==
[~2017-10-25] VITALS: Ht 170.2 cm; Wt 93.5 kg
[~2017-10-25 12:11] MED LIST changes: +CLOP75TA PO; +FERR-51 PO; +FURO40TA6 PO; +POTA20TA6 PO; +SPIR25TA PO
[2017-10-25] MEDS ORDERED: SODIUM CHLORIDE FLUSH 10ML SYR IVF ONE (12:30)
[2017-10-25 13:07] LABS: BASOPHILS # (AUTO) 0.05 x10^3/uL (0-0.1); BASOPHILS % (AUTO) 1 % (0-1); EOSINOPHILS # (AUTO) 0.02 x10^3/uL (0-0.4); EOSINOPHILS % (AUTO) 0 % (1-7); LYMPHOCYTES # (AUTO) 0.66 x10^3/uL (1-3.4); LYMPHOCYTES % (AUTO) 8 % (22-44); MD NO; MEAN CORPUSCULAR HEMOGLOBIN 28.3 pg (27.5-34.5); MEAN CORPUSCULAR HGB CONC 33.2 g/dL (33.2-36.2); MEAN CORPUSCULAR VOLUME 85.3 fL (81-97); MEAN PLATELET VOLUME 8.1 fL (7.4-10.4); MONOCYTES % (AUTO) 7 % (2-9); NEUTROPHILS # (AUTO) 7.53 x10^3/uL (1.8-6.8); NEUTROPHILS % (AUTO) 85 % (42-75); PLATELET COUNT 375 x10^3/uL (130-400); RED BLOOD COUNT 4.66 x10^6/uL (4.38-5.82); RED CELL DISTRIBUTION WIDTH 16.2 % (9.4-14.8)
[2017-10-25 13:13] LABS: INTERNATIONAL NORMALIZED RATIO 1.29 (0.93-1.1); PROTHROMBIN TIME 13.2 Seconds (9.6-11.5)
[2017-10-25 13:17] LABS: ALANINE AMINOTRANSFERASE 57 U/L (12-78); ALBUMIN 3.2 g/dL (3.4-5.0); ANION GAP 10 mmol/L (5-15); CALCIUM 8.2 mg/dL (8.5-10.1); CHLORIDE 106 mmol/L (98-107)
[2017-10-25 13:22] LABS: ALKALINE PHOSPHATASE 80 U/L (45-117); BILIRUBIN,TOTAL 0.9 mg/dL (0.2-1.0); CREATININE 1.37 mg/dL (0.7-1.3); TOTAL PROTEIN 7.8 g/dL (6.4-8.2)
[2017-10-25] MEDS ORDERED: HEPARIN 5,000 UNITS/ML, 1ML ONE (13:24)
[2017-10-25] MEDS ORDERED: HEPARIN 25,000 UNITS/500ML PMX 500 ML ONE (13:26)
[2017-10-25] MEDS ORDERED: AMIODARONE 50 MG/ML, 3ML ONE (13:26)
[2017-10-25 13:29] LABS: TROPONIN I 0.156 ng/mL (0.000-0.045)
[2017-10-25] MEDS ORDERED: HEPARIN 5,000 UNITS/ML, 1ML IV PRN ×2 (13:30)
[2017-10-25] MEDS ORDERED: HEPARIN 5,000 UNITS/ML, 1ML IV ONE ×2 (13:30)
[2017-10-25] MEDS ORDERED: FILTER 0.22 MICRON IV ONE ×2 (13:30→16:30)
[2017-10-25] MEDS ORDERED: HEPARIN 25,000 UNITS/500ML PMX 500 ML IV PRN ×2 (13:30)
[2017-10-25] MEDS ORDERED: AMIODARONE 50 MG/ML, 3ML IVPush ONE ×2 (13:30→15:30)
[2017-10-25] MEDS ORDERED: SODIUM CHLORIDE FLUSH 10ML SYR IVF PRN (14:00)
[2017-10-25 15:45] VITALS: BP 108/76
[2017-10-25] MEDS ORDERED: AMIODARONE 150 MG in DEXTROSE 5% 100 ML IV ONE (16:30)
[2017-10-25 17:23] LABS: TROPONIN I 0.186 ng/mL (0.000-0.045)
[2017-10-25 17:25] VITALS: BP 89/57
[2017-10-25] MEDS ORDERED: AMIODARONE 900 MG in DEXTROSE 5% 482 ML IV PRN (17:30)
[2017-10-25] MEDS ORDERED: DOPAMINE/D5W PMX 250 ML IV PRN (17:30)
[2017-10-25] MEDS ORDERED: FILTER 0.22 MICRON IV SCH (18:00)
[2017-10-25] MEDS ORDERED: AMIODARONE 450 MG in DEXTROSE 5% 241 ML IV PRN (18:00)
[2017-10-25 18:10] VITALS: BP 85/63
[2017-10-25 19:36] VITALS: BP 90/69
[2017-10-25 20:36] LABS: TROPONIN I 0.246 ng/mL (0.000-0.045)
[2017-10-25] MEDS ORDERED: ATORVASTATIN 40 MG TABLET PO SCH (21:00)
[2017-10-25] MEDS ORDERED: FUROSEMIDE 20 MG/2 ML IV SCH (21:00)
[2017-10-25 21:19] VITALS: BP 52/36
[2017-10-25] MEDS ORDERED: EPINEPHRINE SYRINGE 0.1 MG/ML, 10ML ONE (22:45)
[2017-10-25] MEDS ORDERED: SUCCINYLCHOLINE 20 MG/ML, 10ML ONE (22:45)
[2017-10-25] MEDS ORDERED: CALCIUM CHLORIDE 13.6 MEQ/10 ML ONE (22:45)
[2017-10-25] MEDS ORDERED: ETOMIDATE 20 MG/10 ML ONE (22:45)
[2017-10-25] MEDS ORDERED: CODE BLUE RESPONSE XX ONE (23:30)
[2017-10-26] MEDS ORDERED: ASPIRIN 81 MG TABLET EC PO SCH (06:00)
[2017-10-26] MEDS ORDERED: SPIRONOLACTONE 25 MG TABLET PO SCH (09:00)
[2017-10-26] MEDS ORDERED: LISINOPRIL 5 MG TABLET PO SCH (09:00)
[2017-10-26] MEDS ORDERED: POTASSIUM CHLORIDE 20 MEQ TAB.ER.PRT PO SCH (09:00)
== END 2017-10-25 23:06 | disposition expired ==
LOC: ED 12:58 → EDIP 13:45 → 5SO 16:03 → CCU 21:37
PROVIDERS: ADMIT Hospitalist; ATTEND Hospitalist
PROC: 5A12012 Performance of Cardiac Output, Single, Manual (ICD-10-PCS; principal; 2017-10-25)
PROC: 0BH17EZ Insertion of Endotracheal Airway into Trachea, Via Natural or Artificial Opening (ICD-10-PCS; 2017-10-25)
DX: I21.4 Non-ST elevation (NSTEMI) myocardial infarction (principal); I50.33 Acute on chronic diastolic (congestive) heart failure; E44.1 Mild protein-calorie malnutrition; I48.92 Unspecified atrial flutter; I44.2 Atrioventricular block, complete; N17.9 Acute kidney failure, unspecified; I08.1 Rheumatic disorders of both mitral and tricuspid valves; I11.0 Hypertensive heart disease with heart failure; I46.9 Cardiac arrest, cause unspecified; I25.10 Atherosclerotic heart disease of native coronary artery without angina pectoris; I48.91 Unspecified atrial fibrillation; R06.00 Dyspnea, unspecified; Z95.5 Presence of coronary angioplasty implant and graft; I25.2 Old myocardial infarction; Z82.49 Family history of ischemic heart disease and other diseases of the circulatory system; Z68.32 Body mass index [BMI] 32.0-32.9, adult
CPT/HCPCS: 31500; 36415; 71045; 80053; 83880; 84484; 85025; 85520; 85610; 85730; 87081; 92950; 93005; 93970; 96374; 96375; J1265; J1644; J7060; J0282; J0330